=== PATIENT | male | born 1960 | race Caucasian/White ===

== ENCOUNTER 2018-06-17 10:05 | Inpatient (IN) | payer OTHER ==
[2018-06-09 15:40] VITALS: BMI 28.7
--- NOTE | 2018-06-16 12:51 | HP ---
Admitting History and Physical - Admission Chief Complaint: Left knee osteoarthritis x years History of Present Illness: 58 year old male presents in regard to his left knee. Longstanding history of left knee osteoarthritis. Patient complains of pain, difficulty ambulating, limited ROM and difficulty completing activities of daily living. Patient has failed conservative treatment measures including PO medication, activity modification, injections and exercise programs. At this point, patient wishes to proceed with surgical intervention - a left total knee arthroplasty. History Source: Patient - Past Medical History Pulmonary: Yes: Asthma Endocrine: Yes: Hypothyroidism - Past Surgical History Past Surgical History: Yes: Appendectomy, Joint Replacement (left TKR) Additional Past Surgical History: See written history & physical. - Smoking History Smoking history: Current some day smoker Have you smoked in the past 12 months: No Aproximately how many cigarettes per day: 1 - Alcohol/Substance Use Hx Alcohol Use: No Home Medications - Allergies Allergies/Adverse Reactions: Allergies Allergy/AdvReac Type Severity Reaction Status Date / Time No Known Drug Allergies Allergy Verified 06/03/18 11:18 - Home Medications Home Medications: Ambulatory Orders Albuterol Sulfate Inhaler - [Ventolin HFA Inhaler -] 1 inh PO DAILY PRN Aspirin [Ecotrin] 81 mg PO DAILY 06/09/18 Hydrocodone/Acetaminophen [Hydrocodon-Acetaminophn 10-325] 1 each PO ASDIR PRN 06/09/18 Levothyroxine [Synthroid -] 125 mcg PO DAILY 06/09/18 [place]-3 Fatty Acids [[place]-3] 1,000 mg PO DAILY 06/09/18 Review of Systems - Review of Systems Musculoskeletal: reports: Crepitus (left knee), Decreased ROM (left knee), Joint Pain (left knee), Joint Swelling (left knee) Physical Examination Constitutional: Yes: Well Nourished, No Distress Eyes: Yes: Conjunctiva Clear HENT: Yes: Atraumatic, Normocephalic Neck: Yes: Supple Cardiovascular: Yes: Regular Rate and Rhythm Respiratory: Yes: Regular Gastrointestinal: Yes: Soft ...Rectal Exam: Yes: Deferred Musculoskeletal: Yes: Joint Stiffness (left knee), Joint Swelling (left knee) Assessment/Plan 58 year old male presents in regard to his left knee. Longstanding history of left knee osteoarthritis. Patient complains of pain, difficulty ambulating, limited ROM and difficulty completing activities of daily living. Patient has failed conservative treatment measures including PO medication, activity modification, injections and exercise programs. At this point, patient wishes to proceed with surgical intervention - a left total knee arthroplasty. Pros, cons, risks, benefits and alternatives of a left total knee arthroplasty were discussed with the patient at length. Patient confirms his understanding and consents to proceed with a left total knee arthroplasty.
[~2018-06-17 10:05] MED LIST: CELECOXIB 200 MG CAPSULE PO ONE; GABAPENTIN 300 MG CAPSULE (FP) PO ONE; PANTOPRAZOLE 40 MG TABLET (FP) PO ONE; oxyCODONE HCL 10 MG SUSTAINED ACTING TABLET PO ONE
[2018-06-17] MEDS ORDERED: PANTOPRAZOLE 40 MG TABLET (FP) ONE (10:22)
[2018-06-17] MEDS ORDERED: oxyCODONE HCL 10 MG SUSTAINED ACTING TABLET ONE (10:22)
[2018-06-17] MEDS ORDERED: GABAPENTIN 300 MG CAPSULE (FP) ONE (10:23)
[2018-06-17] MEDS ORDERED: CELECOXIB 200 MG CAPSULE ONE (10:23)
[2018-06-17] MEDS ORDERED: MIDAZOLAM HCL 2 MG/2 ML SINGLE DOSE VIAL ONE ×2 (11:08→14:16)
[2018-06-17] MEDS ORDERED: BUPIVACAINE LIPOSOME/PF (EXPAREL) 266 MG/20 ML VIAL ONE (11:08)
[2018-06-17] MEDS ORDERED: ROPIVICAINE 0.2%/MORPH PF/KETOROLAC - 51ML DISP.SYRINGE IA ONE ×2 (11:13→11:30)
[2018-06-17] MEDS ORDERED: VANCOMYCIN 1,000 MG VIAL (RESTRICTED TO ID ONLY) ONE (11:13)
[2018-06-17] MEDS ORDERED: ceFAZolin SODIUM 1 GM VIAL ONE ×2 (11:13→12:13)
[2018-06-17] MEDS ORDERED: CEFAZOLIN 2 GM in DEXTROSE 5%-WATER - 50 ML IVPB ONE (11:30)
[2018-06-17] MEDS ORDERED: TRANEXAMIC ACID 1000 MG/10 ML VIAL IVPUSH ONE (11:30)
[2018-06-17] MEDS ORDERED: ONDANSETRON 4 MG/2 ML VIAL ONE (12:13)
[2018-06-17] MEDS ORDERED: PROPOFOL 20 ML ONE ×3 (12:13→15:04)
[2018-06-17] MEDS ORDERED: DEXAMETHASONE SOD PHOSPHATE 4 MG/1 ML VIAL ONE (12:13)
[2018-06-17] MEDS ORDERED: TRANEXAMIC ACID 1000 MG/10 ML VIAL ONE ×2 (12:25→15:01)
[2018-06-17] MEDS ORDERED: PHENYLEPHRINE HCL 10 MG/1 ML SINGLE DOSE VIAL ONE (12:50)
[2018-06-17] MEDS ORDERED: ONDANSETRON 4 MG/2 ML VIAL IVPUSH PRN ×2 (14:27→15:33)
[2018-06-17] MEDS ORDERED: LACTATED RINGERS SOLUTION 1,000 ML IV SCH ×2 (14:30→15:45)
[2018-06-17] MEDS ORDERED: KETOROLAC TROMETHAMINE 30 MG/1 ML VIAL ONE (15:29)
[2018-06-17] MEDS ORDERED: ACETAMINOPHEN INJECTION 100 ML IVPB ONE (15:29)
[2018-06-17] MEDS ORDERED: traMADol HCL 50 MG TABLET ONE (15:30)
[2018-06-17] MEDS ORDERED: KETOROLAC TROMETHAMINE 30 MG/1 ML VIAL IVPUSH ONE (15:30)
[2018-06-17] MEDS ORDERED: ALBUTEROL SO4 8 GM HFA INHALER IH PRN (15:32)
--- NOTE | 2018-06-17 15:32 | OP ---
Operative Note - Note: Operative Date: 06/17/18 Pre-Operative Diagnosis: Left knee OA Operation: Left PATI TKA Post-Operative Diagnosis: Same as Pre-op Surgeon: Farhan Ellis Pe Manager: Elizabeth Mortensen Anesthesia: Spinal Estimated Blood Loss (mls): 150
[2018-06-17] MEDS ORDERED: MAG HYDROX/AL HYDROX/SIMETH 30 ML UNIT-DOSE CUP PO PRN (15:33)
[2018-06-17] MEDS ORDERED: MAGNESIUM HYDROX 2400MG/30ML ORAL SUSPENSION 30 ML CUP PO PRN (15:33)
[2018-06-17] MEDS ORDERED: ACETAMINOPHEN 1000 MG/100 ML VIAL (NON FORMULARY) IVPB ONE ×2 (15:35→20:15)
[2018-06-17] MEDS ORDERED: traMADol HCL 50 MG TABLET PO ONE (15:40)
--- NOTE | 2018-06-17 16:15 | SPEC ---
DATE OF OPERATION: 06/17/2018 PREOPERATIVE DIAGNOSIS: Left knee osteoarthritis. POSTOPERATIVE DIAGNOSIS: Left knee osteoarthritis. PROCEDURE: Left total knee replacement. ATTENDING SURGEON: Juan Manuel John MD CRIMINAL LAWYER: GUILLE Boss ANESTHESIA: Spinal plus sedation. ESTIMATED BLOOD LOSS: 150 mL. COMPLICATIONS: None. DISPOSITION: The patient was transferred to the PACU in stable condition. IMPLANTS USED: [place] Tri[employer]lon size 1 femoral component, size 2 tibial component with 50-mm tibial stem, 9-mm posterior stabilized polyethylene component, 32-mm patellar component. INDICATIONS: This is a 58-year-old male who presented to the office complaining of severe left knee pain. He was seen and examined by Dr. John and diagnosed with severe left knee osteoarthritis. The patient had a history of a previous ACL reconstruction 10-15 years ago and believes that following this is when the symptoms started. He was initially treated nonoperatively with injections, medications, and physical therapy but continued to have severe pain and worsening ambulatory dysfunction. He was, therefore, indicated for a total knee replacement. The risks, benefits, and alternatives to the procedure were explained to the patient in great detail, and he elected to proceed with the procedure. DESCRIPTION OF PROCEDURE: On the day of surgery, the patient was taken to the operating room and placed on the OR table. Spinal anesthesia was administered by the anesthesiologist. The patient was then positioned supine on the table and all bony prominences were padded. A nonsterile tourniquet was placed on the proximal thigh. The knee was then prepped and draped in the usual sterile fashion and intravenous antibiotics were given for infection prophylaxis. A surgical time-out was then performed with the team, and the patients identity, procedure, side, availability of implants, and the administration of antibiotics was confirmed. The leg was then elevated and exsanguinated, and the tourniquet was inflated. At the onset of the case, the tibial screw from the previous ACL reconstruction was easily visualized and removed with a screwdriver without any difficulty. The femoral screw was not visualized, and we elected to leave it in place because it would not interfere with the function of the knee and excavating the bone to try to retrieve it would cause more damage for essentially zero benefit. With the knee flexed, a midline incision was made and carried down through the subcutaneous fat to the underlying retinaculum. A medial parapatellar arthrotomy was performed. This was followed by a subperiosteal dissection of the tissue off the proximal, medial tibia. A portion of fat pad was removed from under the patellar tendon, and a small portion of fat was excised off the distal supracondylar femur. The knee was then flexed further and the anterior horn of the lateral meniscus was released from the midline. Next, the anterior and posterior cruciate ligaments were transected. Osteophytes were removed from both the femur and tibia. Grade 4 changes were noted diffusely throughout the knee. Hohmann retractors were then placed around the distal femur. The starting drill was used to enter the intramedullary canal. The starting point had been chosen by checking the radiographs and anatomy. Proper alignment and intramedullary placement were then confirmed by placing the long narrow rex into the femur. Next, the distal femoral cutting guide was adjusted to 6 degrees of valgus and pinned to the femur. The bone resection was assessed using an lali-wing. An approximately 10mm distal cut was made and the cut pieces measured. Once this was complete, the sizing guide was used to determine which size femoral component should be used. Next, the appropriately sized 4-in-1 cutting block was then placed at the correct amount of external rotation and the lali wing was used to assure that there would be no notching of the anterior cortex of the femur. Once this was done, Hohmann retractors were used to protect the medial and lateral collateral ligaments, and all appropriate bone cuts were made. Attention was then turned to the tibia. Hohmann retractors were used to translate the tibia anteriorly and protect the collateral ligaments. The medial and lateral menisci were removed. The extramedullary tibial alignment guide was then placed and adjusted for rotation, varus/valgus, and slope. The height of the cutting block was adjusted to the level of the desired bone resection and then pinned in place. The proximal tibia was then cut with a saw and the bone was removed and measured. Once this was completed, trial components were placed and the knee was taken through a full range of motion. Soft tissue balance was assessed in both flexion and extension and found to be appropriate. The knee was stable throughout the full range of motion. The knee was then put into extension and the patella everted. The synovium around the patella was circumscribed with electrocautery. A caliper was used to measure the patellar thickness and a saw was then used to resect the patella at the chondro-osseous junction. The cut surface was then sized and drilled for the appropriate patellar button, with care taken to medialize it. A trial patella was then placed and the knee was again taken through a full range of motion. The knee was found to have both good balance and good patellar tracking. All of the components were removed except the tibial base plate. The appropriate instrumentation was used to drill and punch the proximal tibia for the keel of the final component. All bony surfaces were then cleaned with pulsatile lavage and dried. Bone cement was then prepared on the back table, and final components were cemented in place in the usual fashion. Extruded cement was removed. The polyethylene trial was placed, the knee was put into extension, and axial pressure was applied for compression while the cement hardened. The patellar button was similarly cemented into place. Once the cement had hardened, the knee was taken through a full range of motion to assess stability, balance, and patellar tracking. This was found to be optimal and the trial polyethylene was exchanged for the appropriately sized real implant. After final implants were placed, a 3-minute dilute Betadine lavage was performed. Following this, the wound was irrigated with normal saline, and wound closure was begun. The wound was then thoroughly irrigated with normal saline. No. 1 Polysorb and 0 VLoc 180 barbed sutures were used to close the arthrotomy. No. 1 Polysorb and 2-0 Polysorb sutures were used in the subcutaneous tissues. The skin was closed using both 3-0 VLoc 90 suture in a running subcuticular fashion and SwiftSet skin adhesive. Once this was completed a sterile Aquacel dressing and compressive Ron-wrap was applied. The tourniquet was then deflated and the patient was awakened and taken to the PACU in stable condition. JUAN MANUEL JOHN M.D. [id number]
[2018-06-17] MEDS: oxyCODONE HCL 5 MG TABLET PO PRN (17:21)
[2018-06-17] MEDS ORDERED: CEFAZOLIN 2 GM in DEXTROSE 5%-WATER - 50 ML IVPB SCH (18:00)
[2018-06-17] MEDS: traMADol HCL 50 MG TABLET PO SCH (21:06)
[2018-06-17] MEDS: KETOROLAC TROMETHAMINE 30 MG/1 ML VIAL IVPUSH SCH (21:07)
[2018-06-17] MEDS: ASCORBIC ACID 500 MG TABLET (FP) PO SCH (21:07)
[2018-06-17] MEDS: CELECOXIB 200 MG CAPSULE PO SCH (21:07)
[2018-06-17] MEDS: ACETAMINOPHEN 325 MG TABLET (FP) PO SCH (21:11)
[2018-06-17] MEDS: oxyCODONE HCL 10 MG SUSTAINED ACTING TABLET PO SCH (21:11)
[2018-06-17] MEDS: SENNOSIDES/DOCUSATE COMBO (SENNA PLUS) TABLET (UD) PO SCH (21:11)
[2018-06-17] MEDS: GABAPENTIN 300 MG CAPSULE (FP) PO SCH (21:11)
[2018-06-18] MEDS ORDERED: DEXAMETHASONE SOD PHOSPHATE 10 MG/1 ML VIAL IVPB ONE
[2018-06-18] MEDS: oxyCODONE HCL 5 MG TABLET PO PRN ×4 (00:37→15:45)
[2018-06-18] MEDS ORDERED: CEFAZOLIN 2 GM/D5W 2 GM/50 ML ML IVPB ONE (03:00)
[2018-06-18] MEDS: ACETAMINOPHEN 325 MG TABLET (FP) PO SCH ×4 (03:44→22:26)
[2018-06-18] MEDS: KETOROLAC TROMETHAMINE 30 MG/1 ML VIAL IVPUSH SCH ×3 (03:45→14:40)
[2018-06-18] MEDS: traMADol HCL 50 MG TABLET PO SCH ×3 (07:02→19:48)
[2018-06-18] MEDS: LEVOTHYROXINE NA 125 MCG TABLET (FP) PO SCH (07:02)
[2018-06-18 08:00] LABS: HEMOGLOBIN 13.7 GM/dl (11.7-16.9); MCH 30.9 pg (25.7-33.7); MCHC 34.2 g/dl (32.0-35.9); MEAN CELL VOLUME 90.1 fl (80-96); MEAN PLT VOLUME 8.3 fl (7.5-11.1); PLATELET COUNT 219 K/MM3 (134-434); RBC 4.44 M/mm3 (4.00-5.60)
[2018-06-18 08:28] LABS: BLOOD UREA NITROGEN 18 mg/dl (7-18); CREATININE 1.2 mg/dl (0.6-1.3); GLUCOSE,RANDOM 123 mg/dl (74-106)
[2018-06-18 08:29] LABS: ANION GAP 9 MMOL/L (8-16); CHLORIDE 101 mmol/L (98-107); CO2 23 mmol/L (22-28); POTASSIUM 4.3 mmol/L (3.5-5.1); SODIUM 133 mmol/L (136-145)
[2018-06-18] MEDS: ASPIRIN 325 MG TABLET PO SCH (08:49)
--- NOTE | 2018-06-18 08:51 | PN ---
Progress Note, Physician Chief Complaint: s/p left total knee replacement under spinal anesthesia History of Present Illness: post op day one with peripheral nerve block for post op pain control - Current Medication List Current Medications: Active Medications Acetaminophen (Tylenol -) 650 mg PO Q6H REPLACED BY [facility] Stop: 06/20/18 21:59 Last Admin: 06/18/18 03:44 Dose: 650 mg Al Hydroxide/Mg Hydroxide (Mylanta Oral Suspension -) 30 ml PO Q4H PRN PRN Reason: DYSPEPSIA Albuterol Sulfate (Ventolin Hfa Inhaler -) 1 puff IH Q4H PRN PRN Reason: ASTHMA Ascorbic Acid (Vitamin C -) 500 mg PO BID REPLACED BY [facility] Last Admin: 06/17/18 21:07 Dose: 500 mg Aspirin (Asa -) 325 mg PO DAILY@0800 REPLACED BY [facility] Last Admin: 06/18/18 08:49 Dose: 325 mg Celecoxib (Celebrex -) 200 mg PO BID REPLACED BY [facility] Last Admin: 06/17/18 21:07 Dose: 200 mg Gabapentin (Neurontin -) 300 mg PO BID REPLACED BY [facility] Stop: 06/20/18 21:59 Last Admin: 06/17/18 21:11 Dose: 300 mg Lactated Ringer's (Lactated Ringers Solution) 1,000 mls @ 125 mls/hr IV ASDIR REPLACED BY [facility] Ketorolac Tromethamine (Toradol Injection -) 30 mg IVPUSH Q6H-IV REPLACED BY [facility] Stop: 06/18/18 15:01 Last Admin: 06/18/18 08:47 Dose: 30 mg Levothyroxine Sodium (Synthroid -) 125 mcg PO DAILY@0700 REPLACED BY [facility] Last Admin: 06/18/18 07:02 Dose: 125 mcg Magnesium Hydroxide (Milk Of Magnesia -) 30 ml PO DAILY PRN PRN Reason: CONSTIPATION Multivitamins/Minerals/Vitamin C (Tab-A-Vit -) 1 tab PO DAILY REPLACED BY [facility] Ondansetron HCl (Zofran Injection) 4 mg IVPUSH Q6H PRN PRN Reason: NAUSEA Oxycodone HCl (Roxicodone -) 5 mg PO Q3H PRN PRN Reason: PAIN LEVEL 1-5 Last Admin: 06/18/18 08:48 Dose: 5 mg Oxycodone HCl (Roxicodone -) 10 mg PO Q3H PRN PRN Reason: PAIN LEVEL 6-10 Last Admin: 06/18/18 00:37 Dose: 10 mg Oxycodone HCl (Oxycontin -) 10 mg PO BID REPLACED BY [facility] Stop: 06/20/18 14:28 Last Admin: 06/17/18 21:11 Dose: 10 mg Pantoprazole Sodium (Protonix -) 40 mg PO DAILY REPLACED BY [facility] Senna/Docusate Sodium (Pericolace -) 1 tablet PO BID REPLACED BY [facility] Last Admin: 06/17/18 21:11 Dose: 1 tablet Tramadol HCl (Ultram -) 50 mg PO Q6HPO REPLACED BY [facility] Last Admin: 06/18/18 07:02 Dose: 50 mg - Objective Vital Signs: Vital Signs Temperature 98.0 F 06/18/18 06:51 Pulse Rate 80 06/18/18 06:51 Respiratory Rate 16 06/18/18 06:51 Blood Pressure 115/72 06/18/18 06:51 O2 Sat by Pulse Oximetry (%) 97 06/18/18 01:00 Constitutional: Yes: Well Nourished Cardiovascular: Yes: WNL Respiratory: Yes: WNL Gastrointestinal: Yes: WNL Labs: CBC, BMP 06/18/18 07:45 Assessment/Plan No acute complications related to anesthesia, pain controlled, no further interventions from the dept of anesthesiology at this time
[2018-06-18] MEDS: MULTIVITAMINS (DAILY MVI) TABLET (FP) PO SCH (09:41)
[2018-06-18] MEDS: ASCORBIC ACID 500 MG TABLET (FP) PO SCH ×2 (09:41→22:21)
[2018-06-18] MEDS: GABAPENTIN 300 MG CAPSULE (FP) PO SCH ×2 (09:41→22:21)
[2018-06-18] MEDS: SENNOSIDES/DOCUSATE COMBO (SENNA PLUS) TABLET (UD) PO SCH ×2 (09:41→22:21)
[2018-06-18] MEDS: oxyCODONE HCL 10 MG SUSTAINED ACTING TABLET PO SCH ×2 (09:42→22:21)
[2018-06-18] MEDS: CELECOXIB 200 MG CAPSULE PO SCH ×2 (09:42→22:23)
[2018-06-18] MEDS: PANTOPRAZOLE 40 MG TABLET (FP) PO SCH (10:00)
--- NOTE | 2018-06-18 23:14 | PN ---
Progress Note (short form) - Note Progress Note: Pt seen and examined. Doing well. AVSS Selected Entries 06/18/18 22:00 Temperature 97.9 F Pulse Rate 86 Respiratory 18 Rate Blood Pressure 117/73 O2 Sat by Pulse 96 Oximetry (%) Oxygen Delivery Room Air Method Laboratory Tests 06/18/18 06/18/18 07:45 07:45 WBC 10.0 Hgb 13.7 Hct 40.0 Plt Count 219 Sodium 133 L Potassium 4.3 Chloride 101 Carbon Dioxide 23 D Anion Gap 9 BUN 18 Creatinine 1.2 Creat Clearance w eGFR > 60 Random Glucose 123 H D Calcium 9.0 Gen: NAD LLE: c/d/i, NVID A/P 58yo male POD#1 s/p L TKA PT/OOB D/C home in AM after PT
--- NOTE | 2018-06-18 23:20 | DS ---
Physical Examination Vital Signs: Vital Signs Temperature 97.9 F 06/18/18 22:00 Pulse Rate 86 06/18/18 22:00 Respiratory Rate 18 06/18/18 22:00 Blood Pressure 117/73 06/18/18 22:00 O2 Sat by Pulse Oximetry (%) 96 06/18/18 22:00 Labs: CBC, BMP 06/18/18 07:45 06/18/18 07:45 Discharge Summary Reason For Visit: LEFT KNEE OSTEOARTHRITIS Current Active Problems Osteoarthritis of left knee (Acute) Procedures: Principal: left TKA Hospital Course: Admitted for elective surgery. Procedure performed without complications. Pt received postoperative antibiotic prophylaxis and DVT ppx. Ambulated with physical therapy. Stable for discharge home with outpatient followup. Condition: Stable - Instructions Diet, Activity, Other Instructions: Dr. Ellis - Knee Replacement Instructions Keep the Aquacel dressing on until removed by Dr. Ellis in 03-21 - it is antibacterial and waterproof and you can shower with it on. Follow-up with at the [facility] with Dr. Ellis on ThursdayJuly 06. Call to confirm appointment. [phone] Take one Aspirin 325mg daily for 6 weeks to prevent blood clots in your legs. After 6 weeks go back to your preop dose of 81mg aspirin daily. Take one Pantoprazole 40mg daily for 6 weeks to protect against heartburn and ulcers. Take Cephalexin (antibiotic) 3x/day for 10 days to help prevent skin infection. Take Celebrex 200mg twice daily for 30 days to reduce swelling and inflammation. Take a multivitamin, stool softener, and extra Vitamin C supplement daily. For pain: *Mild pain (1-3/10): Take 1 Tramadol tablet every 4 hours as needed. Moderate pain (4-6/10): Take 1 Tramadol tablet and 1 Percocet tablet every 4 hours as needed. Severe pain (7-10/10): Take 1 Tramadol tablet and 2 Percocet tablets every 4 hours as needed. Activity: You can put as much weight on the operative leg as you want. Right after you get home, there will be a physical therapist coming to your house to help you walk around and bend/straighten your knee. After your follow-up appointment, you will be sent for more intensive outpatient physical therapy which will include machines and equipment that the home therapist cannot bring to your house. Always use a walker or cane for balance and to prevent falls. Expect to see swelling/bruising from the operative site all the way down to your toes. Wear the compression stocking on the operative side during the day to minimize how much swelling there is in your foot/ankle. Don't wear the stocking at night. You don't have to wear a stocking on the other side. Disposition: [facility]/HOME HEALTH CARE - Home Medications Comprehensive Discharge Medication List: Ambulatory Orders Albuterol Sulfate Inhaler - [Ventolin HFA Inhaler -] 1 inh PO DAILY PRN Levothyroxine [Synthroid -] 125 mcg PO DAILY 06/09/18 [place]-3 Fatty Acids [[place]-3] 1,000 mg PO DAILY 06/09/18 Ascorbic Acid [Vitamin C -] 500 mg PO BID tablet 06/18/18 Aspirin [ASA -] 325 mg PO DAILY@0800 tablet 06/18/18 Celecoxib [CeleBREX -] 200 mg PO BID #60 capsule 06/18/18 Cephalexin Monohydrate [Keflex -] 500 mg PO TID #30 capsule 06/18/18 Multivitamins [Multivit ([facility] Formulary)] 1 tab PO DAILY tab 06/18/18 Oxycodone HCl/Acetaminophen [Percocet 5-325 mg Tablet] 1 - 2 tab PO Q4H PRN #60 tablet MDD 10 06/18/18 Pantoprazole Sodium [Protonix -] 40 mg PO DAILY #40 tablet.ec 06/18/18 Sennosides/Docusate Sodium [Pericolace -] 1 tablet PO BID tablet 06/18/18 traMADol HCL [Ultram -] 50 mg PO Q4H PRN #42 tablet MDD 6 06/18/18
[2018-06-19] MEDS: traMADol HCL 50 MG TABLET PO SCH ×2 (00:33→06:15)
[2018-06-19] MEDS: ACETAMINOPHEN 325 MG TABLET (FP) PO SCH ×2 (04:19→10:44)
[2018-06-19] MEDS: oxyCODONE HCL 5 MG TABLET PO PRN (04:20)
[2018-06-19] MEDS: LEVOTHYROXINE NA 125 MCG TABLET (FP) PO SCH (06:15)
[2018-06-19] MEDS: ASPIRIN 325 MG TABLET PO SCH (08:00)
[2018-06-19 09:23] LABS: HEMATOCRIT 35.3 % (35.4-49); HEMOGLOBIN 12.2 GM/dl (11.7-16.9); MCH 31.5 pg (25.7-33.7); MCHC 34.5 g/dl (32.0-35.9); MEAN CELL VOLUME 91.2 fl (80-96); MEAN PLT VOLUME 8.4 fl (7.5-11.1); PLATELET COUNT 197 K/MM3 (134-434); RBC 3.87 M/mm3 (4.00-5.60); WHITE BLOOD COUNT 17.8 K/mm3 (4.0-10.8)
[2018-06-19] MEDS: ASCORBIC ACID 500 MG TABLET (FP) PO SCH (10:41)
[2018-06-19] MEDS: PANTOPRAZOLE 40 MG TABLET (FP) PO SCH (10:41)
[2018-06-19] MEDS: MULTIVITAMINS (DAILY MVI) TABLET (FP) PO SCH (10:42)
[2018-06-19] MEDS: oxyCODONE HCL 10 MG SUSTAINED ACTING TABLET PO SCH (10:42)
[2018-06-19] MEDS: GABAPENTIN 300 MG CAPSULE (FP) PO SCH (10:42)
[2018-06-19] MEDS: CELECOXIB 200 MG CAPSULE PO SCH (10:42)
[2018-06-19] MEDS: SENNOSIDES/DOCUSATE COMBO (SENNA PLUS) TABLET (UD) PO SCH (10:43)
[2018-06-19 12:12] VITALS: BP 118/68; PULSE 86; TEMP 98.6
--- NOTE | 2018-06-21 18:01 | PATH ---
Surgical Pathology Report Patient Name: AMBER RODRIGUEZ Med. Rec. #: [id number] /Age/Gender: 1960 (Age: 58) / M Account: [id number] Location: [facility] MED-SURG Taken: 06/17/2018 Received: 06/17/2018 Reported: 06/21/2018 Physicians: Farhan Ellis M.D. Specimen(s) Received A: LEFT KNEE BONES B: HARDWARE LEFT KNEE Clinical History Left knee osteoarthritis Final Diagnosis A. BONE, KNEE, LEFT, TOTAL KNEE REPLACEMENT: BONE WITH DEGENERATIVE JOINT DISEASE, FIBROADIPOSE TISSUE, AND REACTIVE SYNOVIUM. B. HARDWARE, KNEE, LEFT, REMOVAL: SURGICAL HARDWARE. MACROSCOPIC DIAGNOSIS. Electronically Signed Bhavana Webster M.D. Gross Description A. Received in formalin labeled "left knee bone," is a 9.5 x 8.0 x 2.0 cm aggregate of multiple portions of bone and soft tissue, consistent with knee bones. No areas of eburnation are identified. The articular surfaces are vaca-yellow and diffusely granular. The underlying trabecular bone is yellow and hard. Stoker Installation Mechanic sections are submitted in one cassette, following decalcification. B. Received fresh labeled "hardware left knee," is a 2.0 cm in length avalos metallic screw. No soft tissue is present. No sections are submitted, gross only. 06/18/201806/18/2018
== END 2018-06-19 12:00 | disposition home health service (06) | DRG 302 ==
LOC: FM/S 10:05
PROVIDERS: ADMIT Student in an Organized Health Care Education/Training Program; ATTEND Student in an Organized Health Care Education/Training Program
PROC: 0SRD0J9 Replacement of Left Knee Joint with Synthetic Substitute, Cemented, Open Approach (ICD-10-PCS; principal; 2018-06-17 12:33)
DX: M17.12 Unilateral primary osteoarthritis, left knee (principal); E03.9 Hypothyroidism, unspecified; J45.909 Unspecified asthma, uncomplicated
CPT/HCPCS: 36415; 73560-TC-LT-FY; 80048; 85027; 88300-TC; 88305-TC; 88311-TC; 94760; 97116-GP; 97162-GP; J0131; J1100

== ENCOUNTER 2020-08-06 06:00 | Day surgery (SDC) | payer MEDICARE, OTHER ==
[2020-07-31 13:29] VITALS: BMI 27.0
[2020-08-06] MEDS ORDERED: VANCOMYCIN 1,000 MG VIAL (RESTRICTED TO ID ONLY) ONE (07:02)
[2020-08-06] MEDS ORDERED: SODIUM CHLORIDE 0.9% P/F 10 ML VIAL IJ ONE (07:02)
[2020-08-06] MEDS ORDERED: MIDAZOLAM HCL 2 MG/2 ML SINGLE DOSE VIAL ONE (07:02)
[2020-08-06] MEDS ORDERED: BUPIVACAINE LIPOSOME/PF (EXPAREL) 266 MG/20 ML VIAL ONE (07:02)
[2020-08-06] MEDS ORDERED: EPHEDRINE SULFATE/0.9% NACL/PF 50 MG/10 ML SYRINGE NR ONE (07:56)
[2020-08-06] MEDS ORDERED: ceFAZolin SODIUM 1 GM VIAL ONE ×2 (08:02→10:35)
[2020-08-06] MEDS ORDERED: TRANEXAMIC ACID 1000 MG/10 ML VIAL ONE ×2 (08:02→10:35)
[2020-08-06] MEDS ORDERED: ONDANSETRON 4 MG/2 ML VIAL ONE ×3 (08:02→12:26)
[2020-08-06] MEDS ORDERED: PROPOFOL 20 ML ONE ×6 (08:04)
[2020-08-06] MEDS ORDERED: BUPIVICAINE 0.25%/MORPH PF/KETOROLAC - 51ML DISP.SYRINGE IA ONE ×2 (09:00→10:43)
[2020-08-06] MEDS ORDERED: KETOROLAC TROMETHAMINE 30 MG/1 ML VIAL ONE (10:35)
[2020-08-06] MEDS ORDERED: MAG HYDROX/AL HYDROX/SIMETH 30 ML UNIT-DOSE CUP PO PRN (11:10)
[2020-08-06] MEDS ORDERED: ONDANSETRON 4 MG/2 ML VIAL IVPUSH PRN ×2 (11:10→11:29)
[2020-08-06] MEDS ORDERED: LACTATED RINGERS SOLUTION 1,000 ML IV SCH (11:15)
[2020-08-06] MEDS ORDERED: PROMETHAZINE HCL 25 MG/1 ML VIAL IVPUSH PRN (11:29)
[2020-08-06] MEDS ORDERED: oxyCODONE HCL 5 MG TABLET ONE (12:25)
[2020-08-06] MEDS ORDERED: ACETAMINOPHEN 325 MG TABLET (FP) ONE (12:27)
[2020-08-06] MEDS: ACETAMINOPHEN 325 MG TABLET (FP) PO SCH ×2 (12:37→19:58)
[2020-08-06] MEDS: oxyCODONE HCL 5 MG TABLET PO PRN ×4 (12:37→23:08)
[2020-08-06] MEDS: CEFAZOLIN 2 GM/D5W 2 GM/50 ML ML IVPB SCH ×2 (16:01→23:08)
[2020-08-06] MEDS ORDERED: ALBUTEROL SO4 HFA INHALER IH PRN (16:27)
[2020-08-06] MEDS: GABAPENTIN 300 MG CAPSULE PO SCH (21:51)
[2020-08-06] MEDS: oxyCODONE HCL 10 MG SUSTAINED ACTING TABLET PO SCH (21:51)
[2020-08-06] MEDS: SENNOSIDES/DOCUSATE COMBO (SENNA PLUS) TABLET (UD) PO SCH (21:56)
[2020-08-07] MEDS: ACETAMINOPHEN 325 MG TABLET (FP) PO SCH ×3 (00:17→12:45)
[2020-08-07] MEDS: oxyCODONE HCL 5 MG TABLET PO PRN ×4 (04:08→16:40)
[2020-08-07] MEDS ORDERED: LEVOTHYROXINE NA 125 MCG TABLET (FP) PO SCH (07:00)
[2020-08-07 08:14] LABS: HEMATOCRIT 41.9 % (35.4-49); HEMOGLOBIN 13.9 GM/dl (11.7-16.9); MCH 29.2 pg (25.7-33.7); MCHC 33.2 g/dl (32.0-35.9); MEAN CELL VOLUME 87.9 fl (80-96); MEAN PLT VOLUME 8.5 fl (7.5-11.1); PLATELET COUNT 181 K/MM3 (134-434); RBC 4.77 M/mm3 (4.00-5.60); RDW 13.1 % (11.9-15.9); WHITE BLOOD COUNT 9.8 K/mm3 (4.0-10.8)
[2020-08-07 08:16] LABS: CALCIUM 8.1 mg/dl (8.5-10); POTASSIUM 4.2 mmol/L (3.5-5.1)
[2020-08-07] MEDS ORDERED: TAMSULOSIN HCL 0.4 MG CAP PO SCH (08:30)
[2020-08-07] MEDS: GABAPENTIN 300 MG CAPSULE PO SCH (09:05)
[2020-08-07] MEDS: CEFAZOLIN 2 GM/D5W 2 GM/50 ML ML IVPB SCH (09:05)
[2020-08-07] MEDS: SENNOSIDES/DOCUSATE COMBO (SENNA PLUS) TABLET (UD) PO SCH (09:05)
[2020-08-07] MEDS: oxyCODONE HCL 10 MG SUSTAINED ACTING TABLET PO SCH (09:06)
[2020-08-07] MEDS ORDERED: SODIUM CHLORIDE 500 ML IV STA (09:57)
[2020-08-07] MEDS ORDERED: MULTIVITAMINS (DAILY MVI) TABLET (FP) PO SCH (10:00)
[2020-08-07] MEDS ORDERED: ASPIRIN 325 MG TABLET PO SCH (10:00)
[2020-08-07] MEDS ORDERED: PANTOPRAZOLE 40 MG TABLET PO SCH (10:00)
[2020-08-07 14:15] VITALS: BP 129/62; PULSE 99; TEMP 98.3
[2020-08-07] MEDS ORDERED: BACITRACIN 0.9 GM PACKET TP SCH (16:30)
[2020-08-07] MEDS ORDERED: BACITRACIN 15 GM TUBE TOPICAL OINTMENT TP SCH (16:30)
== END 2020-08-07 17:03 | disposition home or self-care (01) ==
LOC: FASUSAT 06:00 → SUATTDRO 06:00 → EDSTATUS 07:30 → FM/S 13:59 → FASUSAT 08-07 17:03
PROVIDERS: ATTEND Nurse Practitioner Acute Care
PROC: 8E0YXBZ Computer Assisted Procedure of Lower Extremity (ICD-10-PCS; 2020-08-06)
PROC: 0SRC0J9 Replacement of Right Knee Joint with Synthetic Substitute, Cemented, Open Approach (ICD-10-PCS; 2020-08-06)
PROC: 0SRV0J9 Replacement of Right Knee Joint, Tibial Surface with Synthetic Substitute, Cemented, Open Approach (ICD-10-PCS; principal; 2020-08-06 08:32)
DX: M17.11 Unilateral primary osteoarthritis, right knee (principal)
CPT/HCPCS: 27447; C1776; 36415; 73560-TC-RT-FY; 80048; 85027; 94760; 97010-GP; 97116-GP; 97162-GP

== ENCOUNTER 2021-09-02 18:12 | Inpatient (IN) | payer MEDICARE, OTHER ==
[2021-09-02 19:01] VITALS: BMI 28.7
[2021-09-02] MEDS ORDERED: ONDANSETRON 4 MG/2 ML VIAL IVPUSH ONE (19:35)
[2021-09-02] MEDS ORDERED: morphine CARPU-JECT 4 MG/1 ML DISP.SYRIN IVPUSH ONE ×2 (19:35→22:14)
[2021-09-02] MEDS ORDERED: morphine SULFATE 4 MG/ML VIAL ONE ×2 (19:50→22:22)
[2021-09-02] MEDS ORDERED: ONDANSETRON 4 MG/2 ML VIAL ONE (19:51)
[2021-09-02 20:52] LABS: BASO % 0.3 % (0-2.0); EOS % 1.6 % (0-4.5); HEMATOCRIT 43.2 % (35.4-49); HEMOGLOBIN 14.6 GM/dL (11.7-16.9); LYMPH % 11.1 % (8-40); MCH 29.4 pg (25.7-33.7); MCHC 33.8 g/dl (32.0-35.9); MEAN CELL VOLUME 87.1 fl (80-96); MEAN PLT VOLUME 8.4 fl (7.5-11.1); MONO % 9.2 % (3.8-10.2); NEUT % 77.8 % (42.8-82.8); PLATELET COUNT 205 10^3/uL (134-434); RBC 4.96 M/mm3 (4.00-5.60); RDW 13.8 % (11.9-15.9); WHITE BLOOD COUNT 12.4 K/mm3 (4.0-10.0)
[2021-09-02 21:17] LABS: CALCIUM 8.5 mg/dL (8.5-10.1)
[2021-09-02 21:18] LABS: ALBUMIN 2.9 g/dl (3.4-5.0)
[2021-09-02 21:23] LABS: BILIRUBIN,TOTAL 0.8 mg/dL (0.2-1); TOT PROT 7.4 g/dl (6.4-8.2)
[2021-09-02 21:32] LABS: ERYTHROCYTE SEDIMENTATION RATE 63 mm/hr (0-20)
[2021-09-02] MEDS ORDERED: PIPERACILLIN/TAZOB 4.5 GM 4.5 GM in DEXTROSE 5%-WATER 100 ML IVPB ONE (21:46)
[2021-09-02] MEDS ORDERED: VANCOMYCIN 1 GM in D5W (PRE-DOCKED) 1,000 MG/250 ML IVPB ONE (21:46)
[2021-09-02] MEDS ORDERED: PIPERACILLIN/TAZOB 4.5 GM 4.5 GM/100 ML BAG IVPB ONE (21:51)
[2021-09-02] MEDS ORDERED: VANCOMYCIN 1 GRAM (PRE-DOCKED) 1,000 MG/250 ML BAG IVPB ONE (21:51)
[2021-09-02 22:19] LABS: INR 1.44 (0.83-1.09); PROTHROMBIN TIME (PATIENT) 16.6 SEC (9.7-13.0)
[2021-09-02 22:30] LABS: CALCIUM 8.5 mg/dL (8.5-10.1)
[2021-09-02 22:31] LABS: BLOOD UREA NITROGEN 15.5 mg/dL (7-18)
[2021-09-02 22:34] LABS: CREATININE 0.9 mg/dL (0.55-1.3)
[2021-09-03] MEDS ORDERED: oxyCODONE HCL 5 MG TABLET PO PRN ×3 (00:35→09:02)
[2021-09-03] MEDS ORDERED: ACETAMINOPHEN 325 MG TABLET (FP) PO PRN ×3 (00:35→09:02)
[2021-09-03 01:04] LABS: URIC ACID 3.7 mg/dL (2.6-7.2)
[2021-09-03 01:24] LABS: EPI CELLS 4 /uL (0-25.1); HYALINE CASTS 0 /uL (0-3.1); PH,URINE 7.5 (5.0-8.0); URINE APPEARANCE CLEAR; URINE BACTERIA 1 /uL (0-1359); URINE BILIRUBIN NEGATIVE (NEGATIVE); URINE COLOR YELLOW; URINE GLUCOSE (UA) NEGATIVE (NEGATIVE); URINE KETONE NEGATIVE (NEGATIVE); URINE LEUK ESTERASE NEGATIVE (NEGATIVE); URINE NITRITE NEGATIVE (NEGATIVE); URINE PROTEIN 1+ (NEGATIVE); URINE RBC 58 /uL (0-23.9); URINE WBC 1 /uL (0-25.8)
[2021-09-03] MEDS ORDERED: QUEtiapine FUMARATE 25 MG TABLET PO PRN (04:35)
[2021-09-03] MEDS ORDERED: LEVOTHYROXINE NA 125 MCG TABLET (FP) PO SCH (07:00)
[2021-09-03 08:53] LABS: BASO % 0.5 % (0-2.0); EOS % 2.7 % (0-4.5); HEMATOCRIT 39.3 % (35.4-49); HEMOGLOBIN 13.3 GM/dL (11.7-16.9); LYMPH % 11.1 % (8-40); MCH 29.3 pg (25.7-33.7); MCHC 33.9 g/dl (32.0-35.9); MEAN CELL VOLUME 86.6 fl (80-96); MEAN PLT VOLUME 8.3 fl (7.5-11.1); MONO % 9.1 % (3.8-10.2); NEUT % 76.6 % (42.8-82.8); PLATELET COUNT 198 10^3/uL (134-434); RBC 4.54 M/mm3 (4.00-5.60); RDW 13.9 % (11.9-15.9); WHITE BLOOD COUNT 11.5 K/mm3 (4.0-10.0)
[2021-09-03 09:23] LABS: BLOOD UREA NITROGEN 16.3 mg/dL (7-18); CALCIUM 8.3 mg/dL (8.5-10.1)
[2021-09-03 09:24] LABS: ALBUMIN 2.8 g/dl (3.4-5.0)
[2021-09-03 09:25] LABS: URIC ACID 3.1 mg/dL (2.6-7.2)
[2021-09-03 09:27] LABS: BILIRUBIN,TOTAL 1.2 mg/dL (0.2-1); TOT PROT 6.7 g/dl (6.4-8.2)
[2021-09-03] MEDS: oxyCODONE HCL 5 MG TABLET PO PRN ×2 (09:35→18:04)
[2021-09-03] MEDS ORDERED: UMECLIDINIUM/VILANTEROL (ANORO) 62.5/25 MCG INHALER IH SCH (10:00)
[2021-09-03] MEDS ORDERED: PATIENT'S OWN MEDICATION (NON-FORMULARY) (Omega-3 Fatty Acids [Omega-3] 1,000 MG Capsule) PO SCH (10:00)
[2021-09-03] MEDS ORDERED: amLODIPine BESYLATE 5 MG TABLET (FP) PO SCH (10:00)
[2021-09-03] MEDS ORDERED: ASPIRIN 325 MG TABLET PO SCH (10:00)
[2021-09-03] MEDS ORDERED: MULTIVITAMINS (DAILY MVI) TABLET (FP) PO SCH (10:00)
[2021-09-03 11:06] LABS: EPI CELLS 3 /uL (0-25.1); HYALINE CASTS 2 /uL (0-3.1); PH,URINE 5.5 (5.0-8.0); URINE APPEARANCE CLEAR; URINE BACTERIA 0 /uL (0-1359); URINE BILIRUBIN 1+ (NEGATIVE); URINE COLOR DK YELLOW; URINE GLUCOSE (UA) NEGATIVE (NEGATIVE); URINE KETONE TRACE (NEGATIVE); URINE LEUK ESTERASE NEGATIVE (NEGATIVE); URINE NITRITE NEGATIVE (NEGATIVE); URINE PROTEIN 1+ (NEGATIVE); URINE RBC 67 /uL (0-23.9); URINE WBC 5 /uL (0-25.8)
[2021-09-03] MEDS: DOCUSATE SODIUM 100 MG CAPSULE (FP) PO SCH ×2 (14:17→21:34)
[2021-09-03] MEDS ORDERED: ALBUTEROL SO4 HFA INHALER IH ONE (14:43)
[2021-09-03] MEDS ORDERED: PIPERACILLIN/TAZOB 3.375 GM 3.375 GM in DEXTROSE 5%-WATER - 50 ML IVPB SCH (16:19)
[2021-09-03] MEDS ORDERED: VANCOMYCIN 1 GM in D5W (PRE-DOCKED) 1,000 MG/250 ML IVPB SCH (16:30)
[2021-09-03] MEDS ORDERED: VANCOMYCIN/WATER 1,250 MG/250 ML BAG IVPB SCH (22:00)
[2021-09-03] MEDS ORDERED: ATORVASTATIN CA 10 MG TABLET (FP) PO SCH (22:00)
[2021-09-03 22:44] VITALS: BP 112/66; PULSE 84; TEMP 98.8
[2021-09-04] MEDS ORDERED: ASPIRIN 81 MG CHEWABLE TABLETS PO SCH (10:00)
[2021-09-04] MEDS ORDERED: VANCOMYCIN/WATER 1,250 MG/250 ML BAG IVPB SCH (22:00)
== END 2021-09-03 22:57 | disposition short-term general hospital (02) | DRG 549 ==
LOC: JER 18:12 → JERBED 19:49 → J5S 09-03 01:07
PROVIDERS: ADMIT Internal Medicine; ATTEND Internal Medicine
DX: M00.9 Pyogenic arthritis, unspecified (principal); E87.1 Hypo-osmolality and hyponatremia; L03.115 Cellulitis of right lower limb; J98.11 Atelectasis; E03.9 Hypothyroidism, unspecified; I10 Essential (primary) hypertension; J43.2 Centrilobular emphysema; F32.A Depression, unspecified; K21.9 Gastro-esophageal reflux disease without esophagitis; E78.5 Hyperlipidemia, unspecified; M25.561 Pain in right knee; R09.02 Hypoxemia; M17.11 Unilateral primary osteoarthritis, right knee; R31.9 Hematuria, unspecified
CPT/HCPCS: 36415; 71045-TC-FY; 71275-TC; 73562-TC-RT-FY; 80048; 80053; 81003; 84550; 85025; 85610; 85651; 85730; 86140; 86850; 86900; 86901; 87040; 93005; 93010; 93306-TC; 93971-TC; 99285-25; C9803-CS; Q9967; U0003; U0005